=== PATIENT | female | born 2000 | race Caucasian/White ===

== ENCOUNTER 2022-12-23 14:49 | Emergency (ER) | payer OTHER ==
[~2022-12-23] VITALS: Ht 162.6 cm; Wt 74.8 kg
[2022-12-23 14:51] VITALS: BP 115/67; PULSE 88; RESP 17; TEMP 97.4; O2SAT 99
[2022-12-23] MEDS ORDERED: KETOROLAC 15 MG/ML VIAL IM ONE (15:55)
[2022-12-23] MEDS ORDERED: IBUP-2213 PO (16:59)
[2022-12-23 17:16] VITALS: BP 115/67; PULSE 88; RESP 17; TEMP 97.4; O2SAT 99
== END 2022-12-23 17:17 | disposition home or self-care (01) ==
LOC: EDSEX 14:49 → MED 14:49
DX: S60.212A Contusion of left wrist, initial encounter (principal); S09.90XA Unspecified injury of head, initial encounter; V49.88XA Car occupant (driver) (passenger) injured in other specified transport accidents, initial encounter; Y93.89 Activity, other specified; Y92.89 Other specified places as the place of occurrence of the external cause; Y99.8 Other external cause status
CPT/HCPCS: 73110; 81025; 96372; 99283; J1885; Q0092